=== PATIENT | female | born 2000 | race Caucasian/White ===

== ENCOUNTER 2021-08-31 13:44 | Observation (INO) | payer BC ==
[2021-08-31 14:20] LABS: ALT (SGPT) 23 U/L (8-55); AST (SGOT) 19 U/L (5-34); Albumin 4.7 g/dL (3.5-5.0); Alkaline Phosphatase 55 U/L (40-110); BUN (Urea Nitrogen) 21 mg/dL (7.0-18.7); Bilirubin, Total 0.6 mg/dL (0.2-1.2); Calc. Creatinine Clearance 0 mL/min (70-130); Globulin 3.1 g/dL (2.4-3.5); Glucose 109 mg/dL (70-105); Protein, Total 7.8 g/dL (6.0-8.3)
[2021-08-31 14:27] LABS: Anion Gap 20 mmol/L (10-20); Carbon Dioxide 36 mmol/L (22-29); Chloride 82 mmol/L (98-107); Sodium 136 mmol/L (136-145)
[2021-08-31 14:28] LABS: Potassium 2.2 mmol/L (3.5-5.1)
[2021-08-31] MEDS ORDERED: Acetaminophen 325 MG TAB PO PRN (15:25)
[2021-08-31] MEDS ORDERED: Senokot S 8.6-50 MG TAB PO PRN (15:25)
[2021-08-31] MEDS ORDERED: Ondansetron PF 4 MG/2 ML Vial IVP PRN (15:25)
[2021-08-31] MEDS ORDERED: Potassium Chloride 40 MEQ in Sodium Chloride 0.45% 1,000 ML IV SCH (15:30)
[2021-08-31] MEDS ORDERED: Potassium Chloride 20 MEQ TAB PO SCH (15:30)
[2021-08-31] MEDS ORDERED: Magnesium 2 GM/50 ML 2 GM in Premix Bag 1 BAG IVPB SCH (16:15)
[2021-08-31 17:45] VITALS: BMI 19.2
[2021-08-31] MEDS: Potassium Chloride 20 MEQ TAB PO SCH ×2 (18:04→20:02)
[2021-08-31 18:42] LABS: Bilirubin Neg (Negative); Blood, Urine Negative (Negative); Clarity Slightly Cloudy (Clear); Glucose, Urine (Dipstick) Normal (Negative); Ketone, Urine Negative (Negative); Leukocyte Negative (Negative); Nitrite Negative (Negative); Protein, Urine (Dipstick) Negative (Neg-Trace); Specific Gravity, Urine 1.015 (1.002-1.036); Urobilinogen Normal mg/dL (Less than 2)
[2021-08-31 18:45] LABS: Urine Culture Reflex No No
[2021-08-31 18:53] LABS: Bacteria/HPF None Seen HPF (None Seen); RBC/HPF 0-3 HPF (0-3); Squamous Epithelial 0-3 HPF (0-3); WBC/HPF 0-3 HPF (0-3)
[2021-08-31] MEDS: Potassium Chloride 40 MEQ in Sodium Chloride 0.45% 1,000 ML IV SCH (21:56)
[2021-08-31 22:47] LABS: BUN (Urea Nitrogen) 20 mg/dL (7.0-18.7); Calc. Creatinine Clearance 73 mL/min (70-130); Calcium 8.8 mg/dL (7.8-10.44); Glucose 101 mg/dL (70-105); Magnesium 2.9 mg/dL (1.6-2.6)
[2021-08-31 22:51] LABS: Potassium 2.7 mmol/L (3.5-5.1)
[2021-08-31 22:54] LABS: Anion Gap 20 mmol/L (10-20); Carbon Dioxide 32 mmol/L (22-29); Chloride 89 mmol/L (98-107); Sodium 138 mmol/L (136-145)
[2021-09-01 08:20] LABS: #Basophils 0.1 10x3/uL (0.0-0.2); #Eosinphils 0.1 10x3/uL (0.0-0.5); #Monocytes 0.9 10x3/uL (0.0-1.1); #Neutrophils 2.8 10x3/uL (1.5-8.4); %Basophils 0.8 % (0.0-2.0); %Lymphocytes 39.9 % (18.0-47.0); %Monocytes 13.6 % (0.0-10.0); %Neutrophils 44.4 % (40.0-75.0); Hemoglobin 11.1 g/dL (12.0-15.5); Mean Corpuscular HGB CONC 35.1 g/dL (32.0-36.0); Mean Corpuscular Hemoglobin 30.4 pg (27.0-33.0); Mean Corpuscular Volume 86.6 fl (81.6-98.3); Mean Platelet Volume 10.5 fl (7.4-10.4); Platelet Count 267 10x3/uL (150-450); RBC Distribution Width 12.1 % (11.5-14.5); Red Blood Cell (RBC) Count 3.65 10x6/uL (3.90-5.03); White Blood Cell (WBC) Count 6.3 10x3/uL (3.5-10.5)
[2021-09-01 09:00] LABS: ALT (SGPT) 18 U/L (8-55); AST (SGOT) 14 U/L (5-34); Albumin 3.8 g/dL (3.5-5.0); Alkaline Phosphatase 41 U/L (40-110); Anion Gap 12 mmol/L (10-20); BUN (Urea Nitrogen) 16 mg/dL (7.0-18.7); Bilirubin, Total 0.5 mg/dL (0.2-1.2); Calc. Creatinine Clearance 104 mL/min (70-130); Calcium 8.4 mg/dL (7.8-10.44); Carbon Dioxide 35 mmol/L (22-29); Chloride 95 mmol/L (98-107); Glucose 87 mg/dL (70-105); Magnesium 2.4 mg/dL (1.6-2.6); Potassium 2.9 mmol/L (3.5-5.1); Protein, Total 5.8 g/dL (6.0-8.3); Sodium 139 mmol/L (136-145)
[2021-09-01] MEDS ORDERED: Potassium Chloride 20 MEQ TAB PO SCH ×2 (09:00→17:30)
[2021-09-01] MEDS ORDERED: Enoxaparin Sodium 40 MG/0.4 ML SYRINGE SC SCH (09:00)
[2021-09-01 09:37] LABS: ALT (SGPT) 19 U/L (8-55); AST (SGOT) 16 U/L (5-34); Alkaline Phosphatase 43 U/L (40-110); Anion Gap 11 mmol/L (10-20); BUN (Urea Nitrogen) 15 mg/dL (7.0-18.7); Bilirubin, Total 0.7 mg/dL (0.2-1.2); Calc. Creatinine Clearance 101 mL/min (70-130); Calcium 8.5 mg/dL (7.8-10.44); Carbon Dioxide 35 mmol/L (22-29); Chloride 94 mmol/L (98-107); Globulin 2.2 g/dL (2.4-3.5); Glucose 113 mg/dL (70-105); Magnesium 2.3 mg/dL (1.6-2.6); Protein, Total 6.2 g/dL (6.0-8.3); Sodium 137 mmol/L (136-145)
[2021-09-01 09:50] LABS: Potassium 2.8 mmol/L (3.5-5.1)
[2021-09-01] MEDS: Potassium Chloride 20 MEQ TAB PO SCH ×2 (09:53→12:17)
[2021-09-01] MEDS ORDERED: Potassium Chloride 40 MEQ, Admixture Fee 1 EACH in Sodium Chloride 0.45% 1,000 ML IV SCH (10:00)
[2021-09-01] MEDS: Potassium Chloride 40 MEQ in Sodium Chloride 0.45% 1,000 ML IV SCH (10:15)
[2021-09-01 15:34] LABS: Magnesium 2.3 mg/dL (1.6-2.6); Potassium 3.5 mmol/L (3.5-5.1)
[2021-09-01 17:38] VITALS: BP 100/53; TEMP 98.1
== END 2021-09-01 18:06 | disposition home or self-care (01) ==
LOC: CSHERS 13:44 → SUATTDRO 13:44 → CSHTELE 17:21
PROVIDERS: ADMIT Internal Medicine; ATTEND Internal Medicine
DX: E86.0 Dehydration (principal); F50.82 Avoidant/restrictive food intake disorder; E87.6 Hypokalemia; N17.9 Acute kidney failure, unspecified
CPT/HCPCS: 36415; 80053; 81001; 83735; 84443; 85025; 93005; 93010; 96372; 96374; 96375; G0378; J1650; J3475; J3480; J7042